=== PATIENT | male | born 1965 | race Caucasian/White ===

== ENCOUNTER 2018-02-16 12:05 | Inpatient (IN) | payer OTHER ==
[~2018-02-16] VITALS: Ht 190.5 cm; Wt 107.0 kg
--- NOTE | 2018-02-16 12:29 | NUR ---
EKG IN PROG
--- NOTE | 2018-02-16 12:51 | NUR ---
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 Pt comes to er with progressively worse sob today with mod sob with minimal exertion. Pt denies CP or swelling of legs. Resp even and unlabored, on RA@95%, Pt admits to being a smoker, 1 pack a day approx 20 years. Afib on monitor, reports ventrical enalrgement, but not taking any meds as prescribed. States I havent seen a doctor in over 5 years, I'm afraid of what I may have. Er Md in room for exam, pt on monitor.
[2018-02-16 13:23] LABS: BASOPHIL % 0.7 % (0-2); PLATELET COUNT 312 x10^3mcL (130-400)
--- NOTE | 2018-02-16 13:24 | NUR ---
PT MOVED TO BED 8 FOR CLOSER OBSERVATION
[2018-02-16 13:40] LABS: CARBON DIOXIDE 26.4 mmol/L (21-32); CHLORIDE SERUM 104 mmol/L (98-107); CREATININE SERUM 1.2 mg/dL (0.7-1.3); GFR1 > 60 mL/min; GLUCOSE SERUM 145 mg/dL (74-106); POTASSIUM SERUM 5.1 mmol/L (3.5-5.1); SODIUM SERUM 139 mmol/L (136-145)
[2018-02-16 13:44] LABS: ALBUMIN 3.7 g/dL (3.4-5.0); ALKALINE PHOSPHATASE 66 U/L (46-116); ALT/SGPT 22 U/L (16-63); AST/SGOT 19 U/L (15-37); BILIRUBIN TOTAL 1.3 mg/dL (0.20-1.00); TOTAL PROTEIN, SERUM 6.9 g/dL (6.4-8.2)
--- NOTE | 2018-02-16 15:00 | NUR ---
DR CHOU AT BEDSIDE DISCUSSING POC AND PT AGREED FOR ADMISSION.
--- NOTE | 2018-02-16 15:07 | NUR ---
MEDICATED PT FOR SOB. PLEASE SEE EMAR.
--- NOTE | 2018-02-16 15:12 | NUR ---
REPORT GIVEN TO SHU THAPA TO ASSUME CARE OF THE PT.
--- NOTE | 2018-02-16 15:20 | NUR ---
AFIB NOTED TO CM, MEDICATED PT FOR AFIB. PLEASE SEE EMAR.
--- NOTE | 2018-02-16 15:40 | NUR ---
RECEIVED PT FROM ED VIA POLINA, CAME IN DUE TO SOB. AAOX4. DENIES HEADACHE/DIZZINESS. ABLE TO FOLLOW COMMANDS. STATED THAT HE HAS MILD SOB, PLACED ON 2LPM/NC, O2 SAT=97%. STATED THAT HE HAS DRY COUGH AT TIMES. DENIES CHEST PAIN/PRESSURE, AFIB ON THE MONITOR, HR ON THE 90'S. DENIES ABDOMINAL DISCOMFORT. BOWEL SOUNDS ACTIVE. VOIDS. IV SITE IS PATENT AND INTACT. SIDE RAILS UPX2. CALL LIGHT ON REACH. AT BEDSIDE. PRIMARY NURSE ELIER AT BEDSIDE FOR CONTINUITY OF CARE
[2018-02-16 15:45] VITALS: BP 130/82
[2018-02-16 15:47] VITALS: Ht 190.5 cm; Wt 107.0 kg
[2018-02-16 15:47] LABS: CHOLESTEROL/HDL RATIO 4.5; PHOSPHOROUS 3.4 mg/dL (2.5-4.9)
[2018-02-16 15:54] LABS: T3 TOTAL 0.81 ng/mL
[2018-02-16 15:56] LABS: FREE T4 0.87 ng/dL (0.76-1.46); T4(THYROXINE) 5.2 ug/dL (4.7-13.3)
[2018-02-16 17:00] VITALS: BP 142/97
--- NOTE | 2018-02-16 17:52 | NUR ---
NO ACUTE CHANGES AT THIS TIME. NO ACUTE RESP DISTRESS OR SOB NOTED, REMAINS ON 2L NC SATING 98%. TOLERATED 100% OF DINNER. DENIES ANY CP OR PRESSURE. BY HIS SIDE. WILL ENDORSE TO INCOMING RN.
--- NOTE | 2018-02-16 19:19 | NUR ---
RECEIVED PT FROM PREVIOUS SHIFT. PT A/OX4. DENIES CHEST PAIN/PRESSURE. DENIES SOB ON 2LNC. IV PATENT, SALINE LOCKED TO LFA. FAMILY AT BEDSIDE. CALL LIGHT WITHIN REACH, BED IN LOW POSITION. WILL CONTINUE TO MONITOR.
[2018-02-16 20:15] VITALS: BP 142/97
--- NOTE | 2018-02-16 20:27 | NUR ---
DR GRACE MADE AWARE OF BP 121/100. NO FURTHER ORDERS AT THIS TIME
[2018-02-16 21:30] VITALS: BP 121/100
--- NOTE | 2018-02-16 23:38 | NUR ---
PT MEDICATED FOR BP 121/100 PER EMAR. F/U BP 119/97. PT DENIES CHEST PAIN/PRESSURE. CONTINUES TO BE IN AFIB ON TELE # 15. DR GRACE AWARE. WILL CONTINUE TO MONITOR.
--- NOTE | 2018-02-17 05:01 | NUR ---
HR 140. PT DENIES CHEST PAIN/PRESSURE. DR CALLEJAS MADE AWARE, ORDER RECEIVED FOR CARDIZEM PO. WILL ADMINISTER MEDS PER EMAR AND CONTINUE TO MONITOR.
[2018-02-17 05:46] VITALS: BP 124/96
[2018-02-17 06:34] LABS: BASOPHIL % 0.7 % (0-2); PLATELET COUNT 275 x10^3mcL (130-400); RED CELL DISTRIBUTION WIDTH 13.9 % (11.5-14.5)
[2018-02-17 06:35] LABS: CALCIUM 9.3 mg/dL (8.5-10.1); CARBON DIOXIDE 29.8 mmol/L (21-32); CREATININE SERUM 1.4 mg/dL (0.7-1.3); PHOSPHOROUS 4.7 mg/dL (2.5-4.9)
[2018-02-17 06:56] LABS: POTASSIUM SERUM 5.8 mmol/L (3.5-5.1)
--- NOTE | 2018-02-17 07:13 | NUR ---
DR GRACE MADE AWARE OF K+ 5.8 VIA [place]. CARE ENDORSED TO SHU THAPA
--- NOTE | 2018-02-17 07:30 | NUR ---
PT ENDORSE TO ME THIS MORNING. LAYING IN BED RESTING. AA/O X4 BREATHING EVEN AND UNLABOARED ON 2L NC, NO SOB NOTED. TELE 15 A FIB NOTED, HR 88, DENIES ANY CP OR PRESSURE. K+ 5.8 DR. RINCON AWARE THIS AM. IV TO THE LAC INTACT AND PATENT. HEPLOCKED. NO REDNESS OR SWELLING NOTED. CALL LIGHT IN REACH. BED IN LOW POSITION. WILL CONTINUE PLAN OF CARE.
[2018-02-17 07:48] LABS: UA SPECIFIC GRAVITY 1.025 (1.005-1.035); microscopic required? YES; urine erythrocyte NEGATIVE (NEGATIVE)
[2018-02-17 08:28] VITALS: BP 105/70
[2018-02-17 08:36] LABS: AMPHETAMINE QUAL UR NONE DETECTED (See below)
[2018-02-17 12:14] VITALS: BP 105/85
--- NOTE | 2018-02-17 14:20 | NUR ---
PT SITTING UP IN BED, ON 2L NC SATING AT 96-98% / DENIES ANY SOB OR CP AT THIS TIME. BY HIS SIDE. TOLERATED 100% OF HIS LUNCH. WILL CONTINUE PLAN OF CARE.
[2018-02-17 16:20] VITALS: BP 117/97
--- NOTE | 2018-02-17 18:28 | NUR ---
NO ACUTE CHANGES AT THIS TIME. DENIES ANY ANY CHEST PAIN OR PRESSURE. REMAINS ON 2L NC SATING 96-98% DENIES ANY SOB AT THIS TIME. WILL ENDORSE TO INCOMING RN.
--- NOTE | 2018-02-17 19:35 | NUR ---
RECEIVED PT FROM PREVIOUS SHIFT. PT A/OX4. DENIES CHEST PAIN/PRESSURE. DENIES SOB ON RA. AFIB ON TELE # 15, HR 115. IV TO L HAND PATENT, FLUSHING WELL. AT BEDSIDE. CALL LIGHT WITHIN REACH, BED IN LOW POSITION. WILL CONTINUE TO MONITOR.
[2018-02-17 20:53] VITALS: BP 123/83
--- NOTE | 2018-02-18 00:10 | NUR ---
PT RESTING IN NO ACUTE DISTRESS. RR EVEN AND UNLABORED. IV PATENT AND INFUSING WELL WITH NO S/S OF INFILTRATION. CALL LIGHT WITHIN REACH, BED IN LOW POSITION. WILL CONTINUE TO MONITOR.
[2018-02-18 05:13] VITALS: BP 112/79
--- NOTE | 2018-02-18 05:31 | NUR ---
PT RESTING IN NO ACUTE DISTRESS. RR EVEN AND UNLABORED. CALL LIGHT WITHIN REACH, BED IN LOW POSITION. WILL CONTINUE TO MONITOR.
--- NOTE | 2018-02-18 06:33 | NUR ---
NO ACUTE CHANGES THROUGHOUT SHIFT. PT A/OX4. DENIES CHEST PAIN/PRESSURE. DENIES SOB ON RA. WILL ENDORSE CARE TO ONCOMING SHIFT
[2018-02-18 06:39] LABS: PLATELET COUNT 283 x10^3mcL (130-400); RED CELL DISTRIBUTION WIDTH 13.8 % (11.5-14.5)
[2018-02-18 06:57] LABS: BASOPHIL % 0 % (0-2)
[2018-02-18 07:09] LABS: CALCIUM 9.3 mg/dL (8.5-10.1); CARBON DIOXIDE 26.9 mmol/L (21-32); CHLORIDE SERUM 102 mmol/L (98-107); CREATININE SERUM 1.1 mg/dL (0.7-1.3); GFR1 > 60 mL/min; GLUCOSE SERUM 148 mg/dL (74-106); PHOSPHOROUS 4.5 mg/dL (2.5-4.9); SODIUM SERUM 136 mmol/L (136-145)
[2018-02-18 09:50] VITALS: BP 119/62
--- NOTE | 2018-02-18 10:05 | NUR ---
PASSED MORNING MEDICATIONS, PT TOLERATED WELL. DENIES CHEST PAIN, SOB, PALPITATIONS. IV PRESENT TO LEFT HAND#20. BED IN LOWEST POSITION, CALL LIGHT WITHIN REACH.
[2018-02-18 12:25] VITALS: BP 106/70
[2018-02-18] MEDS ORDERED: NIC21 TD (12:37)
[2018-02-18] MEDS ORDERED: LIPI20 PO (12:37)
[2018-02-18] MEDS ORDERED: ELIQUIS2.5 MG PO (12:37)
[2018-02-18] MEDS ORDERED: BAY PO (12:38)
[2018-02-18] MEDS ORDERED: LOP50 PO (12:38)
[2018-02-18] MEDS ORDERED: ZES5 PO (12:38)
[2018-02-18] MEDS ORDERED: L20 PO (12:39)
[2018-02-18] MEDS ORDERED: MEDDP PO (12:40)
[2018-02-18] MEDS ORDERED: SYMBICORT1 AE3 INH (12:42)
--- NOTE | 2018-02-18 12:51 | NUR ---
PASSED NOON MEDICATIONS, PT TOLERATED WELL. DENIES PAIN, EFFORTLESS BREATHING ON ROOM AIR. CALL LIGHT WITHIN REACH.
[2018-02-18 15:20] VITALS: BP 106/70
--- NOTE | 2018-02-18 16:08 | NUR ---
DISCHARGE INSTRUCTIONS GIVEN TO PT AND SPOUSE WHOSE VERBALIZED UNDERSTANDING FOR FOLLOW UP APPOINTMENT AND PRESCRIPTION ORDERS. EDUCATIONAL MATERIAL PROVIDED. IV CATHETER DC'D, INTACT. TELE BOX REMOVED. PT TO BE TRANSPORTED OUT OF UNIT.
== END 2018-02-18 16:11 | disposition home or self-care (01) | DRG 308 ==
LOC: ED 12:05 → DU 14:46
PROVIDERS: Emergency Medicine; ADMIT Internal Medicine
DX: I48.91 Unspecified atrial fibrillation (principal); I50.23 Acute on chronic systolic (congestive) heart failure; F17.210 Nicotine dependence, cigarettes, uncomplicated; F10.10 Alcohol abuse, uncomplicated; Y90.9 Presence of alcohol in blood, level not specified; I11.0 Hypertensive heart disease with heart failure; J44.9 Chronic obstructive pulmonary disease, unspecified; I42.6 Alcoholic cardiomyopathy; E78.5 Hyperlipidemia, unspecified; Z71.6 Tobacco abuse counseling; Z71.41 Alcohol abuse counseling and surveillance of alcoholic; Z79.899 Other long term (current) drug therapy
CPT/HCPCS: 83880; 84439; 85378; J1940; J2920; J2930; J3490; J7030; J7620; Q0092

== ENCOUNTER 2018-08-13 07:59 | Emergency (ER) | payer OTHER ==
[~2018-08-13] VITALS: Ht 190.5 cm; Wt 102.1 kg
[~2018-08-13 07:59] MED LIST: BAY PO; ELIQUIS2.5 MG PO; L20 PO; LIPI20 PO; LOP50 PO; MEDDP PO; NIC21 TD; SYMBICORT1 AE3 INH; ZES5 PO
[2018-08-13 08:00] VITALS: Ht 190.5 cm; Wt 102.1 kg
[2018-08-13 09:45] VITALS: BP 137/87
== END 2018-08-13 10:06 | disposition home or self-care (01) ==
LOC: ED 07:59
DX: M10.9 Gout, unspecified (principal); R53.1 Weakness
CPT/HCPCS: J1885; J7512